=== PATIENT | male | born 1980 | race Caucasian/White ===

== ENCOUNTER 2019-04-02 19:48 | Emergency (ER) | payer OTHER ==
[~2019-04-02] VITALS: Ht 170.2 cm; Wt 84.1 kg
[2019-04-02 19:54] VITALS: Ht 170.2 cm; Wt 84.1 kg
[2019-04-02] MEDS ORDERED: [UNRECOGNIZED DRUG - REMARK] (19:55)
[2019-04-02 20:45] LABS: BASOPHILS 0.4 % (0-2); EOSINOPHILS 3.3 % (0-7); HEMATOCRIT 44.9 % (42.0-54.0); HEMOGLOBIN 16.1 g/dL (13.5-17.5); IMMATURE GRANULOCYTES 0.1 % (0-5); LYMPHOCYTES 38.7 % (15-50); MCH 29.4 pg (26.0-34.0); MCHC 35.9 g/dL (31.0-37.0); MCV 82.1 fL (80.0-100.0); MEAN PLATELET VOLUME 8.3 fL (7.4-10.4); MONOCYTES 5.9 % (2-11); NEUTROPHILS 51.6 % (40-80); PLATELET COUNT 237 10x3/uL (130-400); RBC 5.47 10x6/uL (4.20-6.10)
[2019-04-02 20:55] LABS: CALC OSMOLALITY 278 mosm/kg (275-300); CALCIUM 9.3 mg/dL (8.5-10.1); CARBON DIOXIDE 27.6 mmol/L (21.0-32.0); CHLORIDE - SERUM 103 mmol/L (98-107); GLUCOSE 92 mg/dL (74-106); POTASSIUM - SERUM 4.1 mmol/L (3.5-5.1); SODIUM 139 mmol/L (136-145); UREA NITROGEN 15 mg/dL (7-18); eGFR NON AFRICAN AMERICAN 88 mL/min (90-120)
[2019-04-02 21:12] LABS: ALBUMIN 4.3 g/dL (3.4-5.0); ALKALINE PHOSPHATASE 59 U/L (46-116); ALT (SGPT) 43 U/L (10-68); BILIRUBIN - TOTAL 0.56 mg/dL (0.2-1.3); CKMB 0.7 U/L (0.0-3.6); CREATINE KINASE 73 UL (21-232); LIPASE 120 U/L (73-393); PROTEIN - SERUM 7.4 g/dL (6.4-8.2)
[2019-04-02 21:18] LABS: TROPONIN-I < 0.017 ng/mL (0.000-0.060)
[2019-04-02 21:49] VITALS: BP 137/94
[2019-04-02] MEDS ORDERED: LISINOPRIL5 MG PO (21:56)
[2019-04-02] MEDS ORDERED: PROTONIX40 MG PO (21:56)
== END 2019-04-02 22:10 | disposition home or self-care (01) ==
LOC: D.ER 19:48
PROVIDERS: Family Medicine
DX: I10 Essential (primary) hypertension (principal); K21.9 Gastro-esophageal reflux disease without esophagitis